=== PATIENT | female | born 1945 | race Two or more races ===

== ENCOUNTER → 2024-12-10 | Emergency (ER) | payer OTHER ==
[~2024-12-10] VITALS: Ht 175.3 cm; Wt 56.2 kg
[~2024-12-10] MED LIST: ATORVASTATIN CA20 MG PO; KETOROLAC TROMETHAMINE 60 MG VIAL IM ONE; LOSARTAN-HCTZ1 EACH PO; YUVAFEM10 MCG VAG
== END | disposition home or self-care (01) ==
LOC: ER 07:10
DX: M50.20 Other cervical disc displacement, unspecified cervical region (principal); M70.21 Olecranon bursitis, right elbow; I10 Essential (primary) hypertension
CPT/HCPCS: 72040; 73070; 96372; 99283; J1885